=== PATIENT | female | born 1985 | race Two or more races ===

== ENCOUNTER 2024-10-31 10:32 | Emergency (ER) | payer OTHER ==
[~2024-10-31] VITALS: Ht 167.6 cm; Wt 102.7 kg
[2024-10-31 10:42] VITALS: BP 118/71; TEMP 98.7
[2024-10-31] MEDS ORDERED: CLIN300C12 PO (10:54)
[2024-10-31] MEDS ORDERED: SULF1TAB48 PO (10:54)
[2024-10-31 11:15] VITALS: O2SAT 97
== END 2024-10-31 11:16 | disposition home or self-care (01) ==
LOC: ER 10:53
DX: S61.231A Puncture wound without foreign body of left index finger without damage to nail, initial encounter (principal); Z88.0 Allergy status to penicillin; W55.01XA Bitten by cat, initial encounter; Y93.89 Activity, other specified; Y92.89 Other specified places as the place of occurrence of the external cause; Y99.8 Other external cause status